=== PATIENT | male | born 1955 | race Caucasian/White ===

== ENCOUNTER 2017-05-18 13:07 | Emergency (ER) | payer SELFPAY ==
[2017-05-18] MEDS ORDERED: DIPH,PERTUSS,TET(ADACEL) VAC/PF 0.5 ML (Tdap) IM ONE ×2 (13:18→13:45)
[2017-05-18] MEDS ORDERED: Lidocaine Inj 1% 20 ML ONE (13:18)
[2017-05-18] MEDS ORDERED: ONDANSETRON 4 MG/2 ML VIAL IVP ONE (13:25)
[2017-05-18] MEDS ORDERED: MORPHINE SULFATE 4 MG/1 ML IVP ONE (13:25)
[2017-05-18] MEDS ORDERED: Sodium Chloride 0.9% 1,000 ML PRIMARY IV ONE (13:25)
[2017-05-18] MEDS ORDERED: CEPHALEXIN 500 MG CAPSULE PO ONE (13:25)
--- NOTE | 2017-05-18 13:28 | PDOC ---
Upper Ext Injury HPI - General Chief Complaint: Laceration / Wound Stated Complaint: CUT L 2ND & 3RD DIGITS BETWEEN 2 PIECES OF METAL Date Seen by Provider: 05/18/17 Time Seen by Provider: 13:27 Source: POSITIVE: Patient Exam Limitations: POSITIVE: No limitations Nurse's Notes Reviewed & Considered: Yes - History of Present Illness Initial Comments: Patient was in his usual state of health when a piece of steel slammed into his gloved left hand resulting in near amputation of the tip left second finger and abrasion and pain in his left third finger. He denies any other injuries. Have you received a tetanus shot in the past 10 years?: Unknown Body Location Affected: REPORTS: Upper Extremity (L) Timing: REPORTS: Abrupt Duration: 1/2 hour Severity: Severe Quality: REPORTS: "Pain", Sharpness, Stabbing, Throbbing, Tenderness Location at Time of Onset: REPORTS: Work Context of Injury: REPORTS: Direct Blow, Crush Modifying Factors: REPORTS: Movement, Nothing Relieves Associated Symptoms: REPORTS: Loss of Feeling (Distal tips of his second and third left fingers) - Patient Home Medications Home Medications: Home Medications NK [No Home Medications Reported] 05/18/17 - Patient Allergies Allergies/Adverse Reactions: Allergies Allergy/AdvReac Type Severity Reaction Status Date / Time No Known Allergies Allergy Verified 05/18/17 13:56 ROS - Limitations ROS Limitations: No Limitations Constitution: REPORTS: Denies Symptoms Cardiovascular: REPORTS: Denies Cardiac Symptoms Respiratory: REPORTS: Denies Resp Symptoms Neurological: REPORTS: Numbness (Distal left second and third finger) Gastrointestinal: REPORTS: Denies GI Symptoms Endocrine: REPORTS: Denies Symptoms Musculoskeletal: REPORTS: Other (Pain and numbness left second and third finger) Genitourinary: REPORTS: Denies Symptoms Eyes: REPORTS: Denies Symptoms ENT: REPORTS: Denies Symptoms Skin: REPORTS: Denies Skin Symptoms Lympathic: REPORTS: Denies Lympathic Symptoms Immunologic: POSITIVE: Denies Symptoms Psychiatric: POSITIVE: Denies Psych Symptoms Upper Ext Injury Exam - General Appearance General Appearance: POSITIVE: Alert, Cooperative, Moderate Distress - Extremities Upper Extremity: POSITIVE: Deformity, Limited ROM, Other (Near amputation tip of distal left second finger. Decreased sensation in pain in the DIP joint third left finger) Neurovascular/Tendon: POSITIVE: Sensory Deficit, Motor Deficit, Abnormal Capillary Refill Skin: POSITIVE: Warm, Dry - HEENT HEENT: POSITIVE: Head Inspection Nml, Eyes Inspection Nml, Ears Inspection Nml, Nose Inspection Nml, Oral/Dental Inspect. Nml, Pharynx Inspect. Nml, PERRL, EOMI - Neck / Back Neck/Back: POSITIVE: Normal Inspection, Non-Tender, Painless ROM - Respiratory / CVS Respiratory / CVS: POSITIVE: Chest Non Tender, No Ecchymosis, Breath Sounds Normal, No Respiratory Distress, Heart Sounds Normal, Regular Rate/Rhythm - Abdomen Abdomen: Soft: (All Quadrants), Normal Bowel Sounds: (All Quadrants), Denies Tenderness: (All Quadrants), No Splenomegaly: (All Quadrants), No Hepatomegaly: (All Quadrants), No Guarding: (All Quadrants), No Rebound: (All Quadrants), No Palpable Pulse: (All Quadrants), No Palpabale Mass: (All Quadrants), No Distention: (All Quadrants), No Rigidity: (All Quadrants) Procedures - Laceration/Wound Repair Site of Laceration/Wound: Second and third finger DIP joint left hand. The laceration to the second finger is near amputation of the tip. The third finger laceration is a burst injury. Wound's Depth, Shape: Flap Time of Suture Placement:: 14:30 Distal CMS: No Skin Prep: Betadine Prep Local Anesthesia Used - Indicate Amt Used in Comment: Lidocaine 1%: Yes Wound Explored: No foreign body removed Wound Debrided: Minimal Wound Repaired With: Sutures single layer Suture Size/Type: 5:0, Prolene Number of Sutures: 6 Layer Closure?: No Drain Placement: No Sterile Dressing Applied?: Yes Splint Applied?: Yes Sling Applied?: No Procedure Note:: After obtaining informed verbal consent patient had the skin at the base of his finger prepped with Betadine. Using 1% plain lidocaine a ring block was established at the base of the finger of the second and third fingers left hand. This resulted in excellent anesthesia. Patient then had x-rays obtained of his fingers, and his hand was soaked in a Betadine and normal saline solution. Wound was provided dry and using 5-0 Prolene a total of 4 interrupted sutures were placed in the left second finger reattaching the flap of the distal finger to the finger itself. Attention was then turned to the third finger which required 2 sutures with adequate skin edge reapproximation. Patient tolerated this well, and receives instructions in wound care, a prescription for Keflex, prescription for pain medicine, prescription for antinausea medicine. He has instructions to follow-up with orthopedics calling this afternoon for his appointment. He is to have sutures out in 7 days. Upper Ext Injury Progress - Results Reviewed by me Xrays/CTs/US Reviewed by me: Yes Discussed with Radiologist: No - Patient's Progress Pain Medication Addressed: POSITIVE: Yes Re-Examine Time: 14:48 Status: POSITIVE: Improved MDM / ED Course: Patient was evaluated, an IV started, x-rays obtained. Findings: My review of the x-ray shows no acute osseous abnormalities. Assessment: Near amputation of the tip of the distal left second finger, laceration of the DIP joint third finger left hand. Plan: Keflex for 5 days, pain medication, antinausea medication, and follow-up with orthopedics. Sutures out in 7 days. - Consult Counseled: POSITIVE: Patient, Family, RE: Radiology Results, RE: DX, RE: Need for F/U Patient Care Time - Estimated PCT Patient Care Time (In Minutes): 45 Vital Signs - VS Reviewed Vital Signs Reviewed: Yes Discharge Clinical Impression: Laceration - injury Discharge Disposition: Discharged to Home Condition: Stable Patient Instructions Given at Discharge: Laceration (ED)
[2017-05-18] MEDS ORDERED: Lidocaine 1% 10 MG/ML - 20 ML VIAL SUBCUT ONE (13:57)
--- NOTE | 2017-05-18 14:33 | DI ---
XR FINGERS MIN 2VW,05/18/2017 1:25 PM: Clinical History: Trauma Previous Exam: None at this facility. Findings: 3 views of the left hand are obtained, and demonstrate soft tissue deformity involving the tip of the left second digit. There is also an avulsion fracture involving the distal tuft of the left second d istal phalanx. There is some soft tissue swelling at noted as well and some subcutaneous free air. Impression: 1. Open avulsion fracture of the distal left second phalanx.
[2017-05-18] MEDS ORDERED: BACITRACIN 0.9 GM PACKET OINT TOPICAL ONE (14:44)
[2017-05-18 20:43] VITALS: RESP 19; TEMP 97.2
== END 2017-05-18 15:03 | disposition home or self-care (01) ==
LOC: ER 13:07
DX: S61.211A Laceration without foreign body of left index finger without damage to nail, initial encounter (principal); S61.213A Laceration without foreign body of left middle finger without damage to nail, initial encounter; W45.8XXA Other foreign body or object entering through skin, initial encounter
CPT/HCPCS: 12001 ×2; 73140; 90471; 96361; 96374; 96375; 99282 ×2; J2270; J2405; 90715; J7030